=== PATIENT | male | born 1950 | race African-American/Black ===

== ENCOUNTER 2016-08-02 21:19 | Inpatient (IN) | payer MEDICARE ==
--- NOTE | ~2016-08-02 | DS ---
Unit #: [id number] #: [id number] Patient: KAMALA WALSH [id number] [address] [id number] I MR#: [id number] NAME: KAMALA WALSH ROOM: [facility] Age: 66 Sex: M Admission Date: 08/03/2016 : 1950 Discharge Date: 08/05/2016 Attending Physician: Chyna Penn M.D. Primary Care Physician: No Primary Care Physician DISCHARGE SUMMARY ADDENDUM ADDITIONAL DISCHARGE DIAGNOSES 1. Chronic kidney disease, stage 3. 2. Chronic thrombocytopenia. Dictated by... Rani Llamas/tami TD: 08/06/2016 15:36 JOB #: [id number] DISCHARGE SUMMARY Page 1 of 1 X Chyna Penn MD X DISCHARGE SUMMARY
--- NOTE | ~2016-08-02 | CT71 ---
[facility] A Service of [facility] & [facility] RADIOLOGY TEXT RESULTS PATIENT: KAMALA WALSH LOCATION: C3A 332-01 : [birth year] UNIT #: [id number] AGE: [address]: Chyna Penn MD SEX: M ORDER DR: [id number] [facility] [address] [place], [place] [address] [id number] MR#: [id number] Acc #: [id number] NAME: LUPE WALSH : 1950 SEX: M STUDY DATE/TIME: 08/02/2016 22:03 UNIT: [facility] ROOM: STUDY DESCRIPTION: CT Head Wo Contrast Attending Physician: Junior Marie D.O. Ordering Physician: Junior Marie D.O. Primary Care Physician: Primary Care Physician No MEDICAL IMAGING REPORT This report is preliminary unless electronic signature is present EXAM CT head, 08/02/2016 HISTORY Seizure today prior to arrival. History of diabetes, seizures, cardiac disease, hypertension. This CT exam was performed with one or more of the following radiation dose reduction techniques: automatic exposure control, adjustment of mA and/or kV according to patient size, and iterative reconstruction. FINDINGS CT head performed skull base through vertex without intravenous contrast. Images repeated due to motion. No comparisons. Visualized brainstem shows no acute abnormality. There is some volume loss in the left cerebral peduncle secondary to prior infarct in the left cerebral hemisphere. Cerebellum and cerebral hemispheres show overall preservation of chun matter-white matter differentiation. Large area of encephalomalacic change involving the left frontal lobe, insular cortex and subcortical white matter, posada radiata, and portions of the left frontoparietal junction region. Consistent with remote vascular insult. There is encephalomalacic change in the right anterior-superior frontal lobe consistent with remote vascular insult. Underlying periventricular and deep white matter tracts sequelae of chronic microvascular ischemia. Midline structures nondisplaced. Enlargement of the left lateral ventricle predominately due to ex vacuo change. There is underlying mild generalized atrophy. No intra or extraaxial mass effect or abnormal fluid collection. Extensive cavernous carotid arterial calcification. The intraorbital soft tissues are unremarkable. Visualized paranasal sinuses and mastoid air cells clear. Prior left frontal craniotomy. Given prior craniotomy changes, the underlying left frontal lobe encephalomalacic changes could reflect sequelae of prior traumatic injury or operative STS. [facility] A Service of [facility] & [facility] RADIOLOGY TEXT RESULTS PATIENT: KAMALA WALSH LOCATION: C3A 332-01 : [birth year] UNIT #: [id number] AGE: [address]: Chyna Penn MD SEX: M ORDER DR: intervention. Please correlate with history. IMPRESSION 1. There is no clearly acute abnormality seen in the brain. If the patient has ongoing neurologic symptoms, followup imaging would be recommended. I have no prior studies for comparison. 2. Large area of encephalomalacic change in the left frontal lobe and extending posteriorly into the posterior-superior left frontoparietal junction region as described above. There is an overlying old left frontal craniotomy. The left frontal lobe findings could reflect remote vascular injury, remote traumatic injury or remote intervention. Correlate with history. 3. Smaller area of encephalomalacic change in the right frontal lobe favored to reflect remote vascular injury. 4. Underlying periventricular and deep white matter tract probable sequelae of chronic microvascular ischemia. 5. Underlying mild to moderate generalized atrophy. 6. Vascular calcifications. 7. No acute-appearing bony abnormality. Dictated by... Peter Mcclure M.D. THIS IS AN ELECTRONICALLY VERIFIED REPORT Peter Mcclure M.D. at 08/03/2016 5:58 PM VENITA/yovany TD: 08/02/2016 23:10 JOB #: [id number] MEDICAL IMAGING REPORT Page 1 of 1 COPY
--- NOTE | ~2016-08-02 | HP ---
Unit #: [id number] #: [id number] Patient: KAMALA WALSH [id number] [address] [place], [place] [address] [id number] I MR#: [id number] NAME: LUPE WALSH ROOM: 36300 Age: 66 Sex: M Admission Date: 08/03/2016 : 1950 Attending Physician: Nena Tenorio M.D. Primary Care Physician: No Primary Care Physician HISTORY AND PHYSICAL CHIEF COMPLAINT Seizure. HISTORY This 66-year-old male with hypertension who is anticoagulated with previous CVA, is admitted for a seizure. Unfortunately family did not accompany the patient, and the patient is confused. He has never been admitted to this facility in the past and we have no phone number to contact family. I'm told that family called EMS concerned that the patient was having a seizure around 8:00 last evening, there was blood on his lips. When he was brought to this emergency department he had a right-sided gaze and appeared to be seizing. The patient was given a 1 g of Keppra, sent to CT scan, which shows evidence of old strokes and previous left frontal craniotomy. He was also given 200 mg of IV Vimpat and the case was discussed with Dr. Denney. The patient remains confused and a bit agitated, particularly when I examined him, he is not able to provide history. PAST MEDICAL HISTORY Really unknown. 1. Patient appears to have a seizure disorder. 2. CVA. 3. Left craniotomy. 4. Depression. 5. Hypertension. 6. Anticoagulated. ALLERGIES No known drug allergies. HOME MEDICATIONS Possibly Keppra 500 mg; Celexa 10 mg; Bentyl 20 mg; Neurontin 600 mg; metoprolol; Coumadin doses are unknown. Again no family is present and a list was not sent. This was the list that EMS provided. FAMILY HISTORY Unobtainable. SOCIAL HISTORY The patient lives with his family. He has a hospital bed at home. That is all I know about the patient per the ER physician. REVIEW OF SYSTEMS Unit #: [id number] #: [id number] Patient: KAMALA WALSH Impossible to obtain as patient is confused, a bit agitated and I believe has an element of expressive aphasia. PHYSICAL EXAMINATION GENERAL: Somewhat agitated obese, 66-year-old male who currently is in no acute distress unless he is examined and then he becomes a bit agitated. VITAL SIGNS: Temperature not yet been obtained. Pulse 97, respirations 16, initial blood pressure 195/112, current blood pressure is 172/90, O2 saturation is 97% on 6 L of oxygen. HEENT: Eyes - PERRLA. Patient no longer has a right-sided gaze. Pharynx is benign. There is blood on the patient's lips. NECK: Supple without adenopathy or thyromegaly. CHEST: Diminished breath sounds. CARDIAC: Normal S1 and S2 without definite murmur. ABDOMEN: Bowel sounds are present. No hepatosplenomegaly, tenderness or masses. EXTREMITIES: Without edema. NEUROLOGIC: Patient is a bit agitated, seems to have difficulty expression himself. His cranial nerves appear to be intact. He has left-sided weakness on exam with spasticity in his left arm. DIAGNOSTIC STUDIES ADMISSION LABS: Hematocrit 50.9, white blood count is 16. Negative cardiac enzymes. SMA 12 - glucose 170, CO2 19, protein 9.5, albumin is 5.1, alcohol level is negligible. Urine tox screen negative. Urinalysis positive glucose. CARDIOLOGY STUDIES: EKG - sinus rhythm, poor R wave progression. IMAGING STUDIES: Head CT - large area of encephalomalacia left frontal and left parietal region. Old left frontal craniotomy. Smaller right frontal lobe encephalomalacia, small vessel ischemic disease, atrophy and vascular calcifications. ASSESSMENT 1. Seizure in this patient with seizure disorder on Keppra. Prior CVAs and prior left-sided craniotomy. 2. Anticoagulated. 3. Prior CVA and craniotomy. 4. Hypertension. 5. Poor data base. PLANS 1. Await PT and INR. 2. Check x-ray. 3. Vimpat added to Keppra, the case was discussed with Dr. Denney. 4. Blood pressure control. 5. Better history when family arrives. 6. Obtain home medication list. 7. Gentle IV fluids. Dictated by Nena Tenorio M.D. MELANIE/ts Unit #: [id number] #: [id number] Patient: KAMALA WALSH TD: 08/03/2016 05:22 JOB #: [id number] HISTORY AND PHYSICAL Page 1 of 1 X Nena Tenorio MD HISTORY AND PHYSICAL
--- NOTE | ~2016-08-02 | CR72 ---
[facility] A Service of [facility] & [facility] RADIOLOGY TEXT RESULTS PATIENT: KAMALA WALSH LOCATION: [place] [address] : [birth year] UNIT #: [id number] AGE: [address]: Chyna Penn MD SEX: M ORDER DR: [id number] [facility] [address] [place], [place] [address] [id number] I MR#: [id number] Acc #: [id number] NAME: LUPE WALSH : 1950 SEX: M STUDY DATE/TIME: 08/03/2016 4:09 UNIT: CEDOF ROOM: [facility] STUDY DESCRIPTION: CR Chest Single View Portable Attending Physician: Nena Tenorio M.D. Ordering Physician: Nena Tenorio M.D. Primary Care Physician: Primary Care Physician No MEDICAL IMAGING REPORT This report is preliminary unless electronic signature is present EXAM Single view chest INDICATION Pulmonary filtrate. Shortness of air. Weakness. FINDINGS Single portable AP view chest without comparison. The heart is mildly enlarged. Lungs are clear. No pleural effusion. IMPRESSION Mild cardiomegaly. Dictated by... Rudolph Neil M.D. THIS IS AN ELECTRONICALLY VERIFIED REPORT Rudolph Neil M.D. at 08/03/2016 5:43 AM DAYNA/yovany TD: 08/03/2016 04:47 JOB #: [id number] MEDICAL IMAGING REPORT Page 1 of 1 COPY
--- NOTE | ~2016-08-02 | CO ---
Unit #: [id number] #: [id number] Patient: KAMALA WALSH [id number] [address] [place], [place] [address] [id number] I MR#: [id number] NAME: LUPE WALSH ROOM: 332 Age: 66 Sex: M Admission Date: 08/03/2016 : 1950 Attending Physician: Chyna Penn M.D. Primary Care Physician: Primary Care Physician No CONSULTATION REPORT SOURCE OF INFORMATION The medical records and my brief discussion with the ER physician. PRIMARY CARE PHYSICIAN Not known. PROBLEM LIST 1. From the CT, it looks like the patient has had prior stroke and craniectomy. Whether it was for hemorrhage or other issues, we do not know. 2. He is on Keppra. So, it looks like he has seizure disorder, which could be secondary to the prior injury. 3. Depression. 4. Hypertension. 5. He is supposed to be anticoagulated right now. I have no information on how to contact the family and they did not accompany him and they are not here right now. HISTORY OF PRESENT ILLNESS This is a 66-year-old gentleman who actually was brought in via EMS for decreased level of consciousness and possible seizure. He had tongue bite. He was more confused. Apparently, the family called EMS around 8:00 p.m. last evening saying that the patient was having a seizure and there was blood on his lips. When was brought to the emergency room, he had right-sided gaze deviation and there was question about him seizing. Considering that he has left-sided frontal deficit that would usually indicate that the eyes are deviating towards the opposite side, which can be seen in seizure rather than just a stroke, though there is very small right frontal lesion. It looks like when he was given some medication including Keppra and Vimpat, which I did yesterday, he has improved. He is not following some commands, he is nonverbal and that may be because of his prior stroke and unfortunately, we do not have further information as to his baseline and seizure frequency and who is following him. Medical team is doing other workup to look for any infection or other issues that can decrease the seizure threshold. PAST MEDICAL HISTORY As discussed above. PAST SURGICAL HISTORY As discussed above. ALLERGIES None. Unit #: [id number] #: [id number] Patient: KAMALA WALSH HOME MEDICATIONS Likely Keppra 500 mg b.i.d., Celexa 10 mg, Bentyl 20 mg, Neurontin 600 mg, metoprolol, and Coumadin dose not known. FAMILY HISTORY Not obtainable. SOCIAL HISTORY Apparently, he lives with his family. Apparently, he had a hospital bed at home that is where he was picked from. No tobacco, alcohol, or drug use known to me. REVIEW OF SYSTEMS Could not be obtained because of his aphasia. PHYSICAL EXAMINATION VITAL SIGNS: Temperature 98.4, pulse 73, respirations 16, blood pressure 119/79, and O2 saturations were 94% to 100%. BMI was 36, weight of 250 pounds. His blood pressure when he was brought in was 195/112. NEUROLOGIC: The patient is awake. He is following simple commands. He is nonverbal. On cranial nerve examination, he does respond to threats in the primary white. Eye movements seem to be conjugate. I did not see any significant facial asymmetry. Hearing seemed to be intact. Tongue was midline. He has tongue bite on the right side. I could not visualize oropharynx or uvula. Head turning was spontaneous. Motor examination, he has increased tone on the right side. I really did not see much movement, may be 1 in the upper extremities and 2 in the lower extremities. Left side seemed to be moving spontaneously at least 4/5. Sensory examination intact for pain. Extinction was questionable. Romberg was not evaluated. Gait examinations were deferred. I could not get any reflexes. Toes are upgoing on the right. DIAGNOSTIC STUDIES IMAGING STUDIES: Head CT, which was reviewed. LABORATORY RESULTS: His random glucose was 170, creatinine was 1.5, albumin was 5.1, and protein was 9.1. Alcohol level was less than 5. INR was 1.2. White count was 16, H and H of 16.0 and 50.9, and platelet count was 138. Urine drug screen was negative. Urinalysis really did not show anything. IMPRESSION Possible seizures and it looks that this may be secondary to his brain injury. I do not have any family here right now to tell me the details. So, my plan is supportive care. Follow up on any information from the family. Continue dual antiplatelets and we will go from there. If there are further events, then I will do with that. So far, new stroke has not been identified or has been reported, but I will consider that if needed. Call me if any other questions, issues, or concerns. Seizure precautions and state laws apply. On the CT, it does not look like this is new. If there is any other issue, please let me know. I will be more than glad to re-evaluate and re-visit. Dictated by... Manoj Denney M.D. Unit #: [id number] #: [id number] Patient: KAMALA WALSH CHELSEA/venice TD: 08/04/2016 03:35 JOB #: [id number] CONSULTATION REPORT Page 1 of 1 X Manoj Denney MD X CONSULTATION REPORT
--- NOTE | ~2016-08-02 | DS ---
Unit #: [id number] #: [id number] Patient: KAMALA WALSH [id number] [address] [place], [place] [address] [id number] I MR#: [id number] NAME: KAMALA WALSH ROOM: [facility] Age: 66 Sex: M Admission Date: 08/03/2016 : 1950 Discharge Date: 08/05/2016 Attending Physician: Chyna Penn M.D. Primary Care Physician: No Primary Care Physician DISCHARGE SUMMARY PRINCIPAL DIAGNOSES 1. Breakthrough seizure in patient with known seizure disorder. 2. Depression, acute on chronic, without suicidal or homicidal ideation. 3. Seizure disorder secondary to prior history of cerebrovascular accident in combination with prior brain surgery. 4. 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 5. Chronic anticoagulation of unknown etiology, question aortic atheroma versus history of paroxysmal atrial fibrillation requiring anticoagulation. 6. Hypertension, controlled. 7. Reactive leukocytosis. 8. Obesity. 9. Benign prostatic hypertrophy. 10. Hyperlipidemia. 11. Vascular dementia. CONSULTANTS Dr. Denney, neurology. DIAGNOSTIC STUDIES IMAGING: CT scan of the head without contrast on August 02, 2016 with no acute abnormality. There is a large area of encephalomalacia change in the left frontal lobe extending into the posterior superior left frontal parietal junction. Old left frontal craniotomy noted. Left frontal lobe consistent with remote vascular injury versus traumatic injury versus intervention. Smaller area of encephalomalacia change in the right frontal lobe consistent with prior stroke. Periventricular and deep white matter tract sequelae of chronic microvascular ischemia. Yjza-ao-hodbcbff generalized atrophy and vascular calcifications noted. Chest x-ray on August 03, 2016 with cardiomegaly. CLINICAL HISTORY AND HOSPITAL COURSE Mr. Walsh is a 66-year-old male brought into the emergency department via EMS after witnessed seizure at home. This was also witnessed in the emergency department. Patient was given a gram of Keppra, underwent CT scan without any acute findings and subsequently admitted. Dr. Denney was consulted. Patient remains on Keppra and had the addition of Vimpat. He has had no further seizure activity since admission. Discussion with the patient's inoqrufw-xf-ycu indicates he has had seizure disorder ever since, what appears to be, his brain surgery several years Unit #: [id number] #: [id number] Patient: KAMALA WALSH. 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 He also has prior history of stroke. Will place the patient on Vimpat in addition to Keppra primarily due to depression as outlined below. The patient has had increase in depression at home per patient's wtckgqaw-af-ayf. He does cry frequently. I am uncertain whether this is baseline or related to his prior brain injury or a side effect of the Keppra. For this reason, I am not going to increase dose of Keppra. We will add Vimpat. I am also going to increase his Celexa to 20 mg p.o. daily, and this can be followed up by his primary care physician. The patient's other chronic conditions remained stable. He does have a history of benign prostatic hypertrophy, for which he is taking finasteride. He has had a Wang catheter here. I am going to remove Wang and await spontaneous urination. If none, may replace Wang, and this can be followed up by his primary care provider. DISCHARGE CONDITION Stable. DISCHARGE STATUS Discharge to home. DISCHARGE MEDICATIONS 1. Neurontin 600 mg b.i.d. 2. Vimpat 100 mg p.o. b.i.d. with 1 refill. 3. Keppra 500 mg p.o. daily with 1 refill. 4. Celexa 20 mg daily with 1 refill. 5. Metoprolol tartrate 25 mg 1/2 a tablet b.i.d. 6. Coumadin 10 mg daily with goal INR of 2 to 3. 7. Finasteride 5 mg daily. 8. Crestor 20 mg each evening. DISCHARGE INSTRUCTIONS Patient was instructed to have a mechanical soft diet with ground meats and no mixed consistencies. He should have nectar-thickened liquids. He can increase his activity as tolerated. FOLLOW-UP 1. Patient will follow up with his primary care provider in 2 weeks. 2. He should have a followup INR done on August 08, 2016 with results reported to his primary care physician. Again, the best I can deduct, his INR is greater than 2 to 3, given no valve replacement was noted on chest x-ray. NOTE: Time spent on discharge - 37 minutes. Dictated by... Chyan Penn M.D. LOREN/tami TD: 08/06/2016 15:05 JOB #: [id number] Unit #: [id number] #: [id number] Patient: KAMALA WALSH DISCHARGE SUMMARY Page 1 of 1 X Chyna Penn MD X DISCHARGE SUMMARY
--- NOTE | ~2016-08-02 | EKG ---
PATIENT: LUPE WALSH UNIT #: [id number] Ventricular Rate: 83 BPM Atrial Rate: 83 BPM P-R Interval: 186 ms QRS Duration: 82 ms Q-T Interval: 362 ms QTC Calculation(Bezet): 425 ms P [place]: 44 degrees Calculated R [place]: -4 degrees Calculated T [place]: 31 degrees Diagnosis Line: Muscle tremor Diagnosis Line: Normal sinus rhythm Diagnosis Line: Anterolateral infarct , age undetermined Diagnosis Line: Abnormal ECG Diagnosis Line: No previous ECGs available Diagnosis Line: Confirmed by MARY DICKERSON MD ([id number]) on 08/03/2016 Diagnosis Line: 6:06:18 PM INTERPRETING MD: JAYLA BUNDY
[2016-08-02 23:26] LABS: BASOPHIL# 0.1 X10e3 (0-0.3); BASOPHIL% 0.3 % (0-2.5); DIFF IND YES; HEMATOCRIT 50.9 % (38.0-50.0); LYMPHOCYTE# 3.4 X10e3 (1.0-3.5); LYMPHOCYTE% 21.3 % (17.0-45.0); MEAN CELL VOLUME 93.1 FL (83-96); MEAN CORPUSCULAR HEMOGLOBIN 29.2 PG (28-34); MEAN CORPUSCULAR HGB CONC 31.4 g/dL (30-36); MEAN PLATELET VOLUME 10.4 FL (6.5-11.5); MONOCYTE# 1.2 X10e3 (0-1.0); MONOCYTE% 7.6 % (3.0-12.0); NEUTROPHIL# 11.3 X10e3 (1.5-7.1); NEUTROPHIL% 70.8 % (40-75); PLATELET COUNT 138 X10e3 (140-420); RED BLOOD COUNT 5.47 X10e (3.90-5.60); RED CELL DISTRIBUTION WIDTH 14.5 % (11.0-15.5)
[2016-08-02 23:34] LABS: POC - CKMB 1.5 ng/mL (0.0-7.9); POC - TROPONIN <0.05 ng/mL (<=0.05)
[2016-08-02 23:44] LABS: PLATELET ESTIMATE DECREASED (NORMAL)
[2016-08-02 23:45] LABS: SMUDGE CELLS 9 /100
[2016-08-02 23:46] LABS: RBC NORMAL YES
[2016-08-02 23:47] LABS: ALBUMIN SERUM 5.1 g/dL (3.5-5.0); ALCOHOL BLOOD <5 mg/dL (0); ALKALINE PHOSPHATASE 56 U/L (32-92); ALT (SGPT) 28 U/L (10-40); AST (SGOT) 33 U/L (10-42); BILIRUBIN, DIRECT 0.2 mg/dL (0.0-0.2); BILIRUBIN,INDIRECT 1.1 mg/dL (0.0-0.9); BILIRUBIN,TOTAL 1.3 mg/dL (0.2-2.0); BLOOD UREA NITROGEN 17 mg/dL (9-23); BUN/CREATININE RATIO 11.33; CALCIUM SERUM 9.4 mg/dL (8.4-10.2); CARBON DIOXIDE 19 mmol/L (22-31); CHLORIDE 102 mmol/L (100-111); CREATININE SERUM 1.5 mg/dL (0.6-1.4); GLOM FILT RATE Estimated 55.1 mL/min (>60); GLUCOSE FASTING 170 mg/dL (70-110); POTASSIUM 3.5 mmol/L (3.5-5.1); PROTEIN TOTAL SERUM 9.5 g/dL (6.0-8.3); SODIUM 136 mmol/L (135-145)
[2016-08-03 01:02] LABS: URINE SOURCE CLEAN CATCH
[2016-08-03 01:06] LABS: URINE APPEARANCE CLEAR; URINE BILIRUBIN NEG (NEG); URINE BLOOD TRACE (NEG); URINE COLOR YELLOW; URINE GLUCOSE >1000 MG/DL (NEG); URINE KETONE TRACE (NEG); URINE LEUKOCYTE ESTERASE NEG (NEG); URINE NITRATE NEG (NEG); URINE PH 5.5 (5-8); URINE PROTEIN NEG (NEG)
[2016-08-03 01:08] LABS: U HYALINE CASTS AUWI 0-2 /[LPF]; URBCS1 AUWI 0-2 /[HPF] (0-2); URINE BACTERIA AUWI NEG (NEGATIVE); URINE SQUAMOUS EPITHELIAL CELL NONE SEEN /[HPF]; UWBCS1 AUWI 0-2 (0-5)
[2016-08-03 01:09] LABS: CULTURE INDICATED? NO
[2016-08-03 01:16] LABS: AMPHETAMINE NEG (NEG); BARBITURATES NEG (NEG); BENZODIAZEPINES NEG (NEG); COCAINE NEG (NEG); MARIJUANA NEG (NEG); OPIATES NEG (NEG); TRICYCLIC ANTIDEPRESSANTS NEG (NEG); U METHADONE NEG (NEG)
[2016-08-03 01:33] LABS: POC - CKMB 1.6 ng/mL (0.0-7.9); POC - TROPONIN <0.05 ng/mL (<=0.05)
[2016-08-03 03:32] LABS: INR 1.2; PROTHROMBIN TIME (PATIENT) 12.6 SECONDS (9.6-11.5)
[2016-08-03 03:33] LABS: PARTIAL THROMBOPLASTIN TIME 24.9 SECONDS (23.5-31.3)
[2016-08-03 11:55] LABS: BASOPHIL# 0.1 X10e3 (0-0.3); BASOPHIL% 0.8 % (0-2.5); EOSINOPHIL% 0.1 % (0.0-7.0); HEMATOCRIT 47.1 % (38.0-50.0); HEMOGLOBIN 15.2 gm/dL (13.0-16.0); LYMPHOCYTE# 4.3 X10e3 (1.0-3.5); LYMPHOCYTE% 23.3 % (17.0-45.0); MEAN CORPUSCULAR HEMOGLOBIN 29.3 PG (28-34); MEAN CORPUSCULAR HGB CONC 32.2 g/dL (30-36); MEAN PLATELET VOLUME 9.8 FL (6.5-11.5); MONOCYTE# 1.3 X10e3 (0-1.0); MONOCYTE% 7.2 % (3.0-12.0); NEUTROPHIL# 12.7 X10e3 (1.5-7.1); NEUTROPHIL% 68.6 % (40-75); PLATELET COUNT 129 X10e3 (140-420); RED BLOOD COUNT 5.18 X10e (3.90-5.60); RED CELL DISTRIBUTION WIDTH 14.7 % (11.0-15.5); WHITE BLOOD COUNT 18.5 X10e3 (4.0-10.5)
[2016-08-03 11:58] LABS: DIFF IND NO
[2016-08-03 12:05] LABS: INR 1.2; PROTHROMBIN TIME (PATIENT) 12.2 SECONDS (9.6-11.5)
[2016-08-03 12:42] LABS: BUN/CREATININE RATIO 12.72; CALCIUM SERUM 9.4 mg/dL (8.4-10.2); CREATININE SERUM 1.1 mg/dL (0.6-1.4); GLOM FILT RATE Estimated 80.1 mL/min (>60); POTASSIUM 4.7 mmol/L (3.5-5.1)
[2016-08-03 13:22] LABS: MB 3.2 ng/ml
[2016-08-04 07:11] LABS: HEMATOCRIT 44.7 % (38.0-50.0); HEMOGLOBIN 14.4 gm/dL (13.0-16.0); MEAN CELL VOLUME 91.2 FL (83-96); MEAN CORPUSCULAR HEMOGLOBIN 29.3 PG (28-34); MEAN CORPUSCULAR HGB CONC 32.1 g/dL (30-36); MEAN PLATELET VOLUME 10.2 FL (6.5-11.5); RED BLOOD COUNT 4.9 X10e (3.90-5.60); RED CELL DISTRIBUTION WIDTH 14.6 % (11.0-15.5); WHITE BLOOD COUNT 11.4 X10e3 (4.0-10.5)
[2016-08-04 07:37] LABS: BUN/CREATININE RATIO 11.66; CALCIUM SERUM 8.9 mg/dL (8.4-10.2); CREATININE SERUM 1.2 mg/dL (0.6-1.4); GLOM FILT RATE Estimated 72.1 mL/min (>60); POTASSIUM 3.9 mmol/L (3.5-5.1)
[2016-08-04] MEDS ORDERED: VIMPAT100 MG PO (16:18)
[2016-08-04] MEDS ORDERED: NEURONTIN600 MG PO (16:18)
[2016-08-04] MEDS ORDERED: KEPPRA500 M2 PO (16:19)
[2016-08-04] MEDS ORDERED: CELEXA20 M1 PO (16:20)
[2016-08-04] MEDS ORDERED: COUMADIN10 MG PO (16:21)
[2016-08-04] MEDS ORDERED: METOPROLOL TAR25 MG PO (16:21)
[2016-08-04] MEDS ORDERED: CRESTOR10 MG PO (16:22)
[2016-08-04] MEDS ORDERED: PROSCAR5 MG PO (16:22)
== END 2016-08-05 11:34 | disposition home health service (06) | DRG 101 ==
LOC: CED 21:19 → C3A PCU 08-03 03:10 → CEDOF 08-03 03:10 → C3A PCU 08-03 03:10 → CED 08-03 03:14 → CEDOF 08-03 03:14 → C3A PCU 08-03 07:48
PROVIDERS: Emergency Medicine; Internal Medicine
PROC: 05H433Z Insertion of Infusion Device into Left Innominate Vein, Percutaneous Approach (ICD-10-PCS; principal; 2016-08-03)
PROC: B54NZZA Ultrasonography of Left Upper Extremity Veins, Guidance (ICD-10-PCS; 2016-08-03)
PROC: 3E0234Z Introduction of Serum, Toxoid and Vaccine into Muscle, Percutaneous Approach (ICD-10-PCS; 2016-08-04)
DX: G40.509 Epileptic seizures related to external causes, not intractable, without status epilepticus (principal); I48.0 Paroxysmal atrial fibrillation; D69.6 Thrombocytopenia, unspecified; N18.3 Chronic kidney disease, stage 3 (moderate); F01.50 Vascular dementia, unspecified severity, without behavioral disturbance, psychotic disturbance, mood disturbance, and anxiety; R47.01 Aphasia; R13.10 Dysphagia, unspecified; I69.398 Other sequelae of cerebral infarction; I12.9 Hypertensive chronic kidney disease with stage 1 through stage 4 chronic kidney disease, or unspecified chronic kidney disease; E66.9 Obesity, unspecified; N40.0 Benign prostatic hyperplasia without lower urinary tract symptoms; E78.5 Hyperlipidemia, unspecified; F32.9 Major depressive disorder, single episode, unspecified; Z23 Encounter for immunization
CPT/HCPCS: 36415; 51702; 70450; 71010; 80048; 80076; 80307; 81003; 82550; 82553; 82947; 84443; 84484; 85025; 85027; 85610; 85730; 90732; 92526; 92610; 93005; 94760; 96365; 96375; 97110; 97163; 97167; 97530; 99285; C9254; G0009; G0480; G8978-GP; G8979-GP; G8987-GO; G8988-GO; G8989-GO; G8996-GN; G8997-GN; J1650; J1953

== ENCOUNTER 2016-09-17 21:04 | Emergency (ER) | payer MEDICARE ==
[~2016-09-17 21:04] MED LIST: CELEXA20 M1 PO; COUMADIN10 MG PO; CRESTOR10 MG PO; KEPPRA500 M2 PO; METOPROLOL TAR25 MG PO; NEURONTIN600 MG PO; PROSCAR5 MG PO; VIMPAT100 MG PO
[2016-09-17] MEDS ORDERED: BACLOFEN10 MG PO (21:07)
[2016-09-17] MEDS ORDERED: BENTYL20 MG PO (21:08)
[2016-09-17 22:43] LABS: URINE SOURCE CLEAN CATCH
[2016-09-17 22:45] LABS: URINE APPEARANCE CLEAR; URINE BILIRUBIN NEG (NEG); URINE BLOOD 3+ (NEG); URINE COLOR YELLOW; URINE GLUCOSE NEG (NEG); URINE KETONE NEG (NEG); URINE LEUKOCYTE ESTERASE NEG (NEG); URINE NITRATE NEG (NEG); URINE PH 5.5 (5-8); URINE PROTEIN NEG (NEG); URINE SPECIFIC GRAVITY 1.018 (1.003-1.035)
[2016-09-17 22:49] LABS: U HYALINE CASTS AUWI 0-2 /[LPF]; URBCS1 AUWI 25-50 /[HPF] (0-2); URINE BACTERIA AUWI NEG (NEGATIVE); URINE SQUAMOUS EPITHELIAL CELL NONE SEEN /[HPF]
[2016-09-17 22:53] LABS: CULTURE INDICATED? NO
== END 2016-09-18 00:06 | disposition home or self-care (01) ==
LOC: CED 21:04
PROVIDERS: Emergency Medicine
DX: N48.1 Balanitis (principal); I12.9 Hypertensive chronic kidney disease with stage 1 through stage 4 chronic kidney disease, or unspecified chronic kidney disease; N18.3 Chronic kidney disease, stage 3 (moderate); D47.3 Essential (hemorrhagic) thrombocythemia; G40.909 Epilepsy, unspecified, not intractable, without status epilepticus; Z79.899 Other long term (current) drug therapy; Z79.01 Long term (current) use of anticoagulants
CPT/HCPCS: 81003; 99283